=== PATIENT | male | born 1985 | race African-American/Black ===

== ENCOUNTER 2019-09-24 21:15 | Emergency (ER) | payer OTHER, SELFPAY ==
[2019-09-24 21:13] VITALS: BP 144/102; PULSE 67; RESP 12; TEMP 36.6; O2SAT 100
--- NOTE | 2019-09-24 21:32 | ED.GENADULT ---
HPI - General Adult General Chief complaint: Unspecified Stated complaint: lightheaded Time Seen by Provider: 09/24/19 21:24 Source: patient Mode of arrival: ambulatory Limitations: no limitations History of Present Illness HPI narrative: Patient is a 34 year old male who presents to the emergency department via emergency medical services with complaints of a tingling sensation shooting up his left arm. He notes that he was driving to get food when he felt the tingling and he was getting lightheaded. Patient states that he turned around and went back home and sat down. He got another tingling sensation and that is when he decided to call 911. He states that his tingling is better and now only has tingling to his fingertips with little numbness. Patient has never had these symptoms before. He notes that he was not thinking about anything when he was driving and he was not hyperventilating. He states that his heart was pounding. Patient has been coughing all day but he denies feeling sick otherwise. He has a normal appetite. Patient has a history of asthma but has not had a flare up in years. He is a daily smoker and drinks 3 beers a day. He states that he has only gone a day or two without drinking. He does not smoke marijuana or use other drugs. He does not have a primary care physician. 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 He is 6 feet 4 inches tall but is unaware of his wing span. MD complaint: Tingling left arm Location: left (arm) Quality: other (tingling) Pain Consistency: other (better now) Associated symptoms: other (palpitations, lightheadedness, cough) Treatments prior to arrival: none Related Data Allergies Allergy/AdvReac Type Severity Reaction Status Date / Time Penicillins Allergy Unknown Unknown Verified 09/24/19 21:24 Tuna Allergy Unknown HIVES Uncoded 09/26/18 12:51 Review of Systems Review of Systems: All systems reviewed & are unremarkable except as noted in HPI and below Constitutional: Constitutional: Reports no additional constitutional complaints and Reports other (normal appetite) Cardiovascular: Cardiovascular: Reports no additional cardiovascular complaints, Reports chest pain, Reports lightheadedness, Reports radiating jaw, neck or arm pain and Reports palpitations Respiratory: Respiratory: Reports cough Gastrointestinal: Gastrointestinal: Reports abdominal pain Neurologic: Denies confusion, Denies headache(s), Denies focal weakness, Reports numbness (left arm), Reports tingling (left arm) and Denies weakness PMFSH Past Medical History Medical History Asthma Surgical History Surgical History H/O inguinal hernia repair Social History Social History (Updated 09/24/19 @ 21:50 by Yayo Perez) Smoking status: Current every day smoker Alcohol intake: current Substance use: never 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 Gender identity (if verbalized by the patient): Male Exam Const: General: cooperative and healthy appearing Nutritional Appearance: thin and other (tall) Orientation/consciousness: patient oriented x3 (alert) HENMT: Face and sinus: other (nose is cool) Chest: Chest palpation & inspection: normal inspection of the chest Resp: Effort & Inspection: normal respiratory effort Auscultation: clear to auscultation bilaterally and no wheezes Cardio: Rate: regular rate Rhythm: regular rhythm Heart sounds: no murmurs GI: Inspection: normal to inspection GI Palp: No abdominal tenderness Skin: General skin exam: normal color Neuro: General: patient oriented x3 (alert) Extrem: General: other (toes and fingers cool) Course Reevaluation(s) Reevaluation #1: Discussed negative lab results and discharge plans Date: 09/24/19 Time: 22:34 Vital Signs Vital signs: Vital Signs Temperature 97.9 F 09/24/19 21:13 Pulse Rate 67 09/24/19 21:13
--- NOTE | 2019-09-24 21:40 | ECG_ITS ---
Measurements Intervals [place] Rate: 75 P: 70 [place]: 165 QRS: 71 QRSD: 87 T: 47 QT: 357 QTc: 399 Interpretive Statements SINUS RHYTHM BASELINE ARTIFACT- I, II, AVR NORMAL ECG Electronically Signed On 09-25-2019 6:58:18 CDT by Elio Fernandez D.O.
[2019-09-24 21:58] LABS: Basophils Absolute Auto 0.1 K/mm3 (0.0-0.1); Basophils Percent Auto 1.2 % (0.2-1.2); Eosinophils Absolute Auto 0.1 K/mm3 (0-0.3); Eosinophils Percent Auto 2.7 % (0-4.4); Hematocrit 50.4 % (42.0-52.0); Hemoglobin 17.5 g/dL (14.0-18.0); Immature Granulocyte Absolute 0.01 K/mm3 (0.00-0.031); Immature Granulocyte Percent A 0.2 % (0-0.5); Lymphocytes Absolute Auto 1.99 K/mm3 (0.9-3.2); Lymphocytes Percent Auto 41.2 % (18.3-44.2); Mean Corpuscular HGB Conc 34.7 g/dl (32-36); Mean Corpuscular Hemoglobin 35.7 pg (26-34); Mean Corpuscular Volume 102.9 fl (80-100); Mean Platelet Volume 11.3 fl (7.4-10.4); Monocytes Absolute Auto 0.4 K/mm3 (0.1-0.6); Monocytes Percent Auto 7.9 % (2.6-8.5); Neutrophils Absolute Auto 2.3 K/mm3 (1.3-6.7); Neutrophils Percent Auto 46.8 % (45.5-73.1); Platelet Count Result 204 k/mm3 (150-375); Red Cell Distribution Width 11.8 % (11.5-14.5); White Blood Count 4.8 K/mm3 (4.5-10.0)
[2019-09-24 22:18] LABS: Alanine Aminotransferase 32 U/L (4-50); Albumin Level 4.5 g/dL (3.5-5.1); Alkaline Phosphatase 85 U/L (38-126); Aspartate Amino Transferase 45 U/L (17-59); Bilirubin,Total 0.7 mg/dL (0.2-1.3); Blood Urea Nitrogen 9 mg/dL (9-20); Calcium 9.6 mg/dL (8.4-10.2); Carbon Dioxide 32 mmol/L (22-30); Chloride 99 mmol/L (98-107); Estimated CRCL calculation 102 ml/min; Estimated Glomerular Filt Rate > 60; Glucose 86 mg/dL (75-110); Sodium 137 mmol/L (137-145)
[2019-09-24 22:19] VITALS: BP 127/95; PULSE 71; RESP 12; O2SAT 100
[2019-09-24 22:30] LABS: Troponin I < 0.012 ng/mL (0.000-0.034)
[2019-09-24 22:35] LABS: Ethanol < 10 mg/dL (<10)
[2019-09-24 23:22] VITALS: BP 127/90; PULSE 83; RESP 13; O2SAT 98
== END 2019-09-24 23:20 | disposition home or self-care (01) ==
PROVIDERS: Emergency Provider Emergency Medicine
DX: R20.2 Paresthesia of skin (principal); R03.0 Elevated blood-pressure reading, without diagnosis of hypertension; J45.909 Unspecified asthma, uncomplicated; F17.200 Nicotine dependence, unspecified, uncomplicated
CPT/HCPCS: 36415; 80053; 80307; 84484; 85025; 93005; 99284

== ENCOUNTER 2020-06-19 21:51 | Emergency (ER) | payer OTHER, SELFPAY ==
--- NOTE | ~2020-06-19 | XR_ITS ---
EXAMINATION: XR chest 2V DATE: 06/19/2020 22:47 INDICATION: Medial chest tightness, chest pain and shortness of breath. TECHNIQUE: PA and lateral views of the chest were obtained. COMPARISON: Chest radiograph dated 10/16/2018 FINDINGS: Mild biapical pleural-parenchymal scarring. No other focal airspace opacities, pulmonary edema, pleur al effusion or pneumothorax. The cardiomediastinal silhouette is normal. Slight mid thoracic dextrocu rvature. IMPRESSION: 1. No acute cardiopulmonary disease. Reviewed, dictated and finalized at location A. MATIC RIVETER
[2020-06-19 21:53] VITALS: BP 145/94; PULSE 90; RESP 16; TEMP 36.4
[2020-06-19 22:36] LABS: Basophils Absolute Auto 0.1 K/mm3 (0.0-0.1); Basophils Percent Auto 1.1 % (0.2-1.2); Eosinophils Absolute Auto 0.2 K/mm3 (0-0.3); Eosinophils Percent Auto 2.5 % (0-4.4); Hematocrit 45.2 % (42.0-52.0); Hemoglobin 15.9 g/dL (14.0-18.0); Immature Granulocyte Absolute 0.01 K/mm3 (0.00-0.031); Immature Granulocyte Percent A 0.2 % (0-0.5); Lymphocytes Absolute Auto 2.68 K/mm3 (0.9-3.2); Lymphocytes Percent Auto 41.6 % (18.3-44.2); Mean Corpuscular HGB Conc 35.2 g/dl (32-36); Mean Corpuscular Hemoglobin 35.3 pg (26-34); Mean Corpuscular Volume 100.4 fl (80-100); Mean Platelet Volume 11.2 fl (7.4-10.4); Monocytes Absolute Auto 0.4 K/mm3 (0.1-0.6); Monocytes Percent Auto 6.5 % (2.6-8.5); Neutrophils Absolute Auto 3.1 K/mm3 (1.3-6.7); Neutrophils Percent Auto 48.1 % (45.5-73.1); Platelet Count Result 198 k/mm3 (150-375); Red Cell Distribution Width 11.6 % (11.5-14.5); White Blood Count 6.5 K/mm3 (4.5-10.0)
--- NOTE | 2020-06-19 22:45 | ED.GENADULT ---
HPI - General Adult General Chief complaint: Extremity Injury, Upper Stated complaint: LEFT SHOULDER PAIN Time Seen by Provider: 06/19/20 22:08 History of Present Illness HPI narrative: Patient is a 35-year-old male who presents ER with left shoulder and chest pain for the last 2 days. Began several days ago while at work. Worse with twisting and moving. Mild discomfort with exertion. Improvement with ibuprofen. Patient reports he is also been having some mild cough but no increasing shortness of breath. He has been swabbed twice this week for Covid and was negative both times since he works at a [employer]. Related Data Home Medications Medication Instructions Recorded Confirmed aspirin 06/19/20 atorvastatin 06/19/20 montelukast mg 06/19/20 trazodone 06/19/20 Allergies Allergy/AdvReac Type Severity Reaction Status Date / Time Penicillins Allergy Unknown Unknown Verified 06/19/20 22:00 Tuna Allergy Unknown HIVES Uncoded 06/19/20 22:00 Review of Systems Review of Systems: All systems reviewed & are unremarkable except as noted in HPI and below Constitutional: Constitutional: Denies chills, Denies fever(s) and Denies weakness ENT: Reports nasal congestion and Denies sore throat Cardiovascular: Cardiovascular: Reports chest pain, Denies rapid heart rate and Denies radiating jaw, neck or arm pain Respiratory: Respiratory: Reports cough, Denies dyspnea and Denies wheezing Gastrointestinal: Gastrointestinal: Denies abdominal pain, Denies nausea and Denies vomiting Musculoskeletal: Musculoskeletal: Denies back pain and Reports muscle cramps PMFSH Past Medical History Medical History (Updated 06/20/20 @ 00:27 by Adrian Boateng MD) Asthma Surgical History Surgical History H/O inguinal hernia repair Social History Social History (Updated 09/24/19 @ 21:50 by Yayo Perez) Smoking status: Current every day smoker Alcohol intake: current Substance use: never 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 HEAD: Normocephalic, atraumatic. CHEST: Coarse lung sounds throughout. No respiratory distress. HEART: Regular rate and rhythm. Normal peripheral pulses. ABDOMEN: Soft, nontender, nondistended. EXTREMITIES: Normal range of motion. No edema. SKIN: Warm, dry, no rash. NEURO: Alert and oriented x3. PSYCH: Normal mood and affect. Course Course Emergency Course: Lungs clear after nebulizer treatment. Discharge with steroids. Has albuterol at home. Vital Signs Vital signs: Vital Signs Temperature 97.5 F L 06/19/20 21:53 Pulse Rate 90 06/19/20 21:53 Respiratory Rate 16 06/19/20 21:53 Blood Pressure 145/94 H 06/19/20 21:53 Temperature 97.5 F L 06/19/20 21:53 Pulse Rate 90 06/19/20 22:59 Respiratory Rate 16 06/19/20 22:59 Blood Pressure 145/94 H 06/19/20 21:53 Medical Decision Making Vital Signs Vital Signs: Vital Signs Temperature 97.5 F L 06/19/20 21:53 Pulse Rate 90 06/19/20 21:53 Respiratory Rate 16 06/19/20 21:53 Blood Pressure 145/94 H 06/19/20 21:53 Temperature 97.5 F L 06/19/20 21:53 Pulse Rate 90 06/19/20 22:59 Respiratory Rate 16 06/19/20 22:59 Blood Pressure 145/94 H 06/19/20 21:53 Lab Data Result diagrams: 06/19/20 22:30 06/19/20 22:30 Labs: Lab Results 06/19/20 06/19/20 Range/Units 22:30 22:30 WBC 6.5 (4.5-10.0) K/mm3 RBC 4.50 L (4.6-6.20) M/mm3 Hgb 15.9 (14.0-18.0) g/dL Hct 45.2 (42.0-52.0) % MCV 100.4 H (80-100) fl MCH 35.3 H (26-34) pg MCHC 35.2 (32-36) g/dl RDW 11.6 (11.5-14.5) % Plt Count 198 (150-375) k/mm3 MPV 11.2 H (7.4-10.4) fl Immature Gran % (Auto) 0.2 (0-0.5) % Neut % (Auto) 48.1 (45.5-73.1) %
[2020-06-19 22:52] VITALS: PULSE 75; RESP 16
[2020-06-19 22:52] LABS: Anion Gap 7 mmol/L (8-16); Blood Urea Nitrogen 11 mg/dL (9-20); Calcium 9.4 mg/dL (8.4-10.2); Carbon Dioxide 29 mmol/L (22-30); Chloride 101 mmol/L (98-107); Estimated CRCL calculation 121 ml/min; Estimated Glomerular Filt Rate > 60; Glucose 110 mg/dL (75-110); Potassium 3.5 mmol/L (3.4-5.0); Sodium 137 mmol/L (137-145)
[2020-06-19] MEDS: ALBUTEROL SULFATE NEB 2.5 MG/0.5 ML INH 5 MG INHALATION (22:52)
[2020-06-19] MEDS: IPRATROPIUM BR 0.02% INH SOLN 0.5 MG/2.5 ML VIAL INHALATION (22:52)
[2020-06-19 22:59] VITALS: PULSE 90; RESP 16
[2020-06-19 23:04] LABS: Troponin I < 0.012 ng/mL (0.000-0.034)
[2020-06-20] MEDS: predniSONE 20 MG TABLET 60 MG PO (00:56)
[2020-06-20 00:57] VITALS: BP 129/89; PULSE 78; RESP 18; O2SAT 98
== END 2020-06-20 00:58 | disposition home or self-care (01) ==
PROVIDERS: Emergency Provider Emergency Medicine
DX: R07.89 Other chest pain (principal); J45.901 Unspecified asthma with (acute) exacerbation; F17.200 Nicotine dependence, unspecified, uncomplicated
CPT/HCPCS: 36415; 71046; 80048; 84484; 85025; 94640; 99284; J7512

== ENCOUNTER 2020-06-25 23:22 | Emergency (ER) | payer OTHER, SELFPAY ==
--- NOTE | ~2020-06-25 | XR_ITS ---
EXAMINATION: XR chest 2V 06/26/2020 00:40 INDICATION: Shortness of breath. History of asthma. PROCEDURE: PA and lateral views of the chest COMPARISON: Comparison to multiple prior studies sequentially, with oldest reviewed study dated 09/03. FINDINGS: The lungs are clear. The cardiomediastinal silhouette is within normal limits. There are no pleural effusions. There is no pneumothorax suspected. IMPRESSION: 1: NO ACUTE CARDIOPULMONARY DISEASE. Reviewed, dictated and finalized at location A. OND SAW OPERATOR
[2020-06-25 23:32] VITALS: BP 152/90; PULSE 77; RESP 12; TEMP 36.9; O2SAT 100
[2020-06-26] VITALS (31 sets, daily range): BP systolic 129–152; BP diastolic 86–105; PULSE 61–84; RESP 12–20; O2SAT 95–100
[2020-06-26] MEDS: ALBUTEROL SULFATE NEB 2.5 MG/0.5 ML INH 5 MG INHALATION (00:19)
[2020-06-26] MEDS: IPRATROPIUM BR 0.02% INH SOLN 0.5 MG/2.5 ML VIAL INHALATION (00:19)
--- NOTE | 2020-06-26 00:45 | PC.NURSE ---
pt currently rates pain 0/10, would like to hold off on morphine dose at this time. ERP Dr. Boateng notified of pt request and ok with waiting at this time.
[2020-06-26 00:57] LABS: Basophils Percent Auto 0.1 % (0.2-1.2); Hematocrit 44.5 % (42.0-52.0); Hemoglobin 15.6 g/dL (14.0-18.0); Immature Granulocyte Absolute 0.06 K/mm3 (0.00-0.031); Immature Granulocyte Percent A 0.6 % (0-0.5); Lymphocytes Percent Auto 11.6 % (18.3-44.2); Mean Corpuscular HGB Conc 35.1 g/dl (32-36); Mean Corpuscular Hemoglobin 36.1 pg (26-34); Mean Platelet Volume 12.5 fl (7.4-10.4); Monocytes Absolute Auto 0.2 K/mm3 (0.1-0.6); Neutrophils Absolute Auto 8.1 K/mm3 (1.3-6.7); Neutrophils Percent Auto 85.7 % (45.5-73.1); Platelet Count Result 230 k/mm3 (150-375); Red Blood Count 4.32 M/mm3 (4.6-6.20); Red Cell Distribution Width 11.9 % (11.5-14.5); White Blood Count 9.5 K/mm3 (4.5-10.0)
[2020-06-26 01:07] LABS: Prothrombin Time 13.4 Seconds (11.1-14.7)
[2020-06-26 01:08] LABS: Partial Thromboplastin Time 26.2 SECONDS (22.3-36.8)
[2020-06-26 01:12] LABS: Anion Gap 10 mmol/L (8-16); Blood Urea Nitrogen 15 mg/dL (9-20); Calcium 9.5 mg/dL (8.4-10.2); Carbon Dioxide 32 mmol/L (22-30); Chloride 97 mmol/L (98-107); Estimated CRCL calculation 120 ml/min; Estimated Glomerular Filt Rate > 60; Glucose 146 mg/dL (75-110); Potassium 3.5 mmol/L (3.4-5.0); Sodium 139 mmol/L (137-145)
[2020-06-26 01:24] LABS: Troponin I < 0.012 ng/mL (0.000-0.034)
--- NOTE | 2020-06-26 01:39 | ED.GENADULT ---
HPI - General Adult General Chief complaint: Asthma Stated complaint: abd pain Time Seen by Provider: 06/25/20 23:29 History of Present Illness HPI narrative: Patient is a 35-year-old male who presents to the ER with complaints of asthma exacerbation. Has tightness across his chest. Reports he is also had some intermittent cramping in his left arm today. Had been seen recently for similar and was given a prednisone burst which she reports compliance with. Reports occasional cough. No fevers or chills or sweats. No loss of taste or smell. Due to recurrence of chest discomfort and shortness of breath felt he should be reevaluated. Related Data Home Medications Medication Instructions Recorded Confirmed aspirin 06/19/20 atorvastatin 06/19/20 montelukast mg 06/19/20 trazodone 06/19/20 Allergies Allergy/AdvReac Type Severity Reaction Status Date / Time Penicillins Allergy Unknown Unknown Verified 06/19/20 22:00 Tuna Allergy Unknown HIVES Uncoded 06/19/20 22:00 Review of Systems Review of Systems: All systems reviewed & are unremarkable except as noted in HPI and below Constitutional: Constitutional: Denies chills, Denies fever(s) and Denies weakness ENT: Denies nasal congestion Cardiovascular: Cardiovascular: Reports chest pain, Denies rapid heart rate and Denies radiating jaw, neck or arm pain Respiratory: Respiratory: Denies cough, Reports dyspnea and Reports wheezing Gastrointestinal: Gastrointestinal: Denies abdominal pain, Denies nausea and Denies vomiting PMFSH Past Medical History Medical History (Updated 06/26/20 @ 05:12 by Adrian Boateng MD) Asthma Surgical History Surgical History H/O inguinal hernia repair Social History Social History (Updated 09/24/19 @ 21:50 by Yayo Perez) Smoking status: Current every day smoker Alcohol intake: current Substance use: never 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 HEAD: Normocephalic, atraumatic. ENT: Mucous membranes moist. CHEST: Rhonchi right lower lung galindo, mild wheezing left lower lung galindo. No respiratory distress. HEART: Regular rate and rhythm. Normal peripheral pulses. ABDOMEN: Soft, nontender, nondistended,. EXTREMITIES: Normal range of motion. No edema. SKIN: Warm, dry, no rash. NEURO: Alert and oriented x3. Course Course Emergency Course: Patient denied any pain in his chest so he opted not to receive morphine. After nebulizer treatment patient's lung sounds have cleared. We will perform a second troponin out of caution. Vital Signs Vital signs: Vital Signs Temperature 98.4 F 06/25/20 23:32 Pulse Rate 77 06/25/20 23:32 Respiratory Rate 12 06/25/20 23:32 Blood Pressure 152/90 H 06/25/20 23:32 Pulse Oximetry 100 06/25/20 23:32 Temperature 98.4 F 06/25/20 23:32 Pulse Rate 73 06/26/20 04:45 Respiratory Rate 16 06/26/20 04:45 Blood Pressure 135/92 H 06/26/20 04:30 Pulse Oximetry 100 06/26/20 04:45 Medical Decision Making Vital Signs Vital Signs: Vital Signs Temperature 98.4 F 06/25/20 23:32 Pulse Rate 77 06/25/20 23:32 Respiratory Rate 12 06/25/20 23:32 Blood Pressure 152/90 H 06/25/20 23:32 Pulse Oximetry 100 06/25/20 23:32 Temperature 98.4 F 06/25/20 23:32 Pulse Rate 73 06/26/20 04:45 Respiratory Rate 16 06/26/20 04:45 Blood Pressure 135/92 H 06/26/20 04:30 Pulse Oximetry 100 06/26/20 04:45 Lab Data Result diagrams: 06/26/20 00:51 06/26/20 00:51 Labs: Lab Results 06/26/20 06/26/20 06/26/20 Range/Units 00:51 00:51 00:51 WBC 9.5 (4.5-10.0) K/mm3 RBC 4.32 L (4.6-6.20) M/mm3 Hgb 15.6 (14.0-18.0) g/dL Hct 44.5 (42.0-52.0) % MCV 103.0 H (80-100) fl
[2020-06-26 04:48] LABS: Troponin I < 0.012 ng/mL (0.000-0.034)
--- NOTE | 2020-06-26 05:18 | ECG_ITS ---
Measurements Intervals [place] Rate: 63 P: 41 [place]: 163 QRS: 65 QRSD: 96 T: 35 QT: 382 QTc: 392 Interpretive Statements SINUS RHYTHM NORMAL ECG Electronically Signed On 06-26-2020 7:20:03 NURSE HEAD by Elio Fernandez D.O.
== END 2020-06-26 05:43 | disposition home or self-care (01) ==
PROVIDERS: Emergency Provider Emergency Medicine; PCP Internal Medicine
DX: J45.909 Unspecified asthma, uncomplicated (principal); R07.89 Other chest pain; F17.200 Nicotine dependence, unspecified, uncomplicated
CPT/HCPCS: 36415; 71046; 80048; 84484; 85025; 85610; 85730; 93005; 94640; 99284

== ENCOUNTER 2020-12-05 12:28 | Emergency (ER) | payer OTHER, SELFPAY ==
[2020-12-05 12:42] VITALS: BP 134/79; PULSE 82; RESP 16; TEMP 36.4; O2SAT 98
--- NOTE | 2020-12-05 12:43 | ED.MALEGU ---
HPI - Male Genitourinary General Chief complaint: Urogenital-Male Stated complaint: UTI Time Seen by Provider: 12/05/20 12:55 Source: patient and RN notes reviewed Mode of arrival: ambulatory Limitations: no limitations History of Present Illness HPI Narrative: 35-year-old male presents concern for dysuria, feeling of something blocking his urine stream , urine urgency. He denies fever, abdominal pain, testicular pain, swelling, redness, penile discharge. He reports he has had unprotected sex with the last 2 months, however is not aware of any known exposure to any STD. MD Complaint: dysuria Related Data Home Medications Medication Instructions Recorded Confirmed aspirin 06/19/20 atorvastatin 06/19/20 montelukast mg 06/19/20 trazodone 06/19/20 Proair Inhaler 12/05/20 Allergies Allergy/AdvReac Type Severity Reaction Status Date / Time Penicillins Allergy Unknown Unknown Verified 06/19/20 22:00 Tuna Allergy Unknown HIVES Uncoded 06/19/20 22:00 Review of Systems Review of Systems: Narrative: CONSTITUTIONAL: Denies malaise, chills, sweats, or fever. CARDIOVASCULAR: Denies chest pain, palpitations, or edema. RESPIRATORY: Denies cough or dyspnea. GASTROINTESTINAL: Denies abdominal pain, nausea, vomiting, diarrhea, bloody, or mucous stools. GENITOURINARY: Reports dysuria, urgency, hesitancy urine flow. Denies flank pain, penile discharge, or hematuria. SKIN: Denies lesions, rash or itching. MUSCULOSKELETAL: Denies back pain or myalgia. 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 There is no relevant family history pertinent to the presenting complaint Exam Narrative: Exam Narrative: GENERAL: Well-appearing, well-nourished, and in no acute distress. HEAD: Normocephalic. EYES: PERRLA, conjunctivae clear. NECK: Supple. No lymphadenopathy CHEST: Clear to auscultation. No respiratory distress. HEART: Regular rate and rhythm. SKIN: Warm, dry, no rash. NEURO: Alert and oriented x3. PSYCH: Normal mood and affect Course Course Emergency Course: Discussed with patient differential diagnosis, STD testing. Patient feels that he is a low likelihood of STD, but not impossible. Will treat patient for possible prostatitis, will send urine culture and gonorrhea, chlamydia, trichomonas testing. Patient understands that if any STD is positive he may need to return for treatment. Patient is aware of diagnosis, understands and agrees to treatment plan. Anticipatory guidance given. Patient agrees to follow-up as directed and is aware of reasons to seek care at the emergency department. Portions of this record may have been created with voice recognition software Vital Signs Vital signs: Vital Signs Temperature 97.6 F 12/05/20 12:42 Pulse Rate 82 12/05/20 12:42 Respiratory Rate 16 12/05/20 12:42 Blood Pressure 134/79 12/05/20 12:42 Pulse Oximetry 98 12/05/20 12:42 Temperature 97.6 F 12/05/20 12:42 Pulse Rate 82 12/05/20 12:42 Respiratory Rate 16 12/05/20 12:42 Blood Pressure 134/79 12/05/20 12:42 Pulse Oximetry 98 12/05/20 12:42 Reviewed. MDM - Male Genitourinary MDM Narrative Medical decision making narrative: Exam findings and UA show no acute concerns or changes; patient is non-toxic appearing and is in no distress. Patient is appropriate for outpatient treat
--- NOTE | 2020-12-05 12:45 | PC.NURSE ---
in br to obtain ua spec.
== END 2020-12-05 13:16 | disposition home or self-care (01) ==
PROVIDERS: Emergency Provider Nurse Practitioner; PCP Internal Medicine
DX: N41.0 Acute prostatitis (principal); J45.909 Unspecified asthma, uncomplicated
CPT/HCPCS: 81003; 87086; 87491; 87591; 87661; 99213; G0463

== ENCOUNTER 2021-04-16 14:13 | Emergency (ER) | payer OTHER, SELFPAY ==
[2021-04-16] VITALS (27 sets, daily range): BP systolic 118–143; BP diastolic 82–97; PULSE 60–88; RESP 12–19; TEMP 36.2–36.6; O2SAT 96–100
--- NOTE | ~2021-04-16 | XR_ITS ---
EXAMINATION: XR chest 2V DATE: 04/16/2021 15:09 INDICATION: Dizziness. Right arm numbness. Asthma. TECHNIQUE: Frontal and lateral views of the chest were obtained. COMPARISON: Chest 2 views 06/26/20, CT abdomen and pelvis 05/20/2019 FINDINGS: There is mild scarring at the lung apices. No pleural effusion or pneumothorax. The heart s ize is normal. IMPRESSION: 1. Stable mild scarring at the lung apices. Reviewed, dictated and finalized at location A.
--- NOTE | 2021-04-16 14:20 | ECG_ITS ---
Measurements Intervals [place] Rate: 74 P: 68 [place]: 150 QRS: 68 QRSD: 98 T: 47 QT: 353 QTc: 392 Interpretive Statements SINUS RHYTHM BORDERLINE T WAVE ABNORMALITY- ANTERIOR LEADS BASELINE WANDER- II, III BORDERLINE ECG Electronically Signed On 04-16-2021 16:46:41 CDT by Elio Fernandez D.O.
[2021-04-16 14:55] LABS: Basophils Absolute Auto 0.1 K/mm3 (0.0-0.1); Eosinophils Absolute Auto 0.2 K/mm3 (0-0.3); Eosinophils Percent Auto 4.4 % (0-4.4); Hematocrit 46.2 % (42.0-52.0); Hemoglobin 16.3 g/dL (14.0-18.0); Immature Granulocyte Absolute 0.01 K/mm3 (0.00-0.031); Immature Granulocyte Percent A 0.2 % (0-0.5); Lymphocytes Absolute Auto 1.73 K/mm3 (0.9-3.2); Lymphocytes Percent Auto 34.6 % (18.3-44.2); Mean Corpuscular HGB Conc 35.3 g/dl (32-36); Mean Corpuscular Hemoglobin 35.7 pg (26-34); Mean Corpuscular Volume 101.3 fl (80-100); Mean Platelet Volume 11.7 fl (7.4-10.4); Monocytes Absolute Auto 0.4 K/mm3 (0.1-0.6); Monocytes Percent Auto 7.8 % (2.6-8.5); Neutrophils Absolute Auto 2.6 K/mm3 (1.3-6.7); Platelet Count Result 198 k/mm3 (150-375); Red Blood Count 4.56 M/mm3 (4.6-6.20); Red Cell Distribution Width 12.1 % (11.5-14.5)
[2021-04-16 15:06] LABS: INR 0.9; Partial Thromboplastin Time 25.2 SECONDS (22.3-36.8); Prothrombin Time 11.7 Seconds (11.1-14.7)
[2021-04-16 15:20] LABS: Anion Gap 8 mmol/L (8-16); Blood Urea Nitrogen 12 mg/dL (9-20); Calcium 9.7 mg/dL (8.4-10.2); Carbon Dioxide 31 mmol/L (22-30); Chloride 99 mmol/L (98-107); Estimated CRCL calculation 98 ml/min; Estimated Glomerular Filt Rate > 60; Glucose 122 mg/dL (65-110); Potassium 4.3 mmol/L (3.4-5.0); Sodium 138 mmol/L (137-145)
[2021-04-16 15:32] LABS: Troponin I < 0.012 ng/mL (0.000-0.034)
[2021-04-16 18:25] LABS: Troponin I < 0.012 ng/mL (0.000-0.034)
[2021-04-16] MEDS: SODIUM CHLORIDE 0.9% IV 1,000 ML 999 ML IV CONT (19:48)
--- NOTE | 2021-04-16 21:42 | ED.GENADULT ---
HPI - General Adult General Chief complaint: Dizziness Stated complaint: lightheaded Time Seen by Provider: 04/16/21 17:13 History of Present Illness HPI narrative: Patient is a 36-year-old male who presents ER with concerns for lightheadedness. Reports he was leaving work and felt like he was going to pass out 2 times. No racing of the heart. Reports his head would johnny down and he suddenly would wake back up. No racing the heart. No chest pain or chest pressure. Reports he did have tightness in his right arm. No recurrence of symptoms. Has not had this previously. Related Data Home Medications Medication Instructions Recorded Confirmed atorvastatin 06/19/20 montelukast mg 06/19/20 Proair Inhaler 12/05/20 Allergies Allergy/AdvReac Type Severity Reaction Status Date / Time Penicillins Allergy Unknown Unknown Verified 04/16/21 16:43 Tuna Allergy Unknown HIVES Uncoded 04/16/21 16:43 Review of Systems Review of Systems: All systems reviewed & are unremarkable except as noted in HPI and below Constitutional: Constitutional: Denies chills, Denies fever(s) and Denies weakness ENT: Denies nasal congestion and Denies sore throat Cardiovascular: Cardiovascular: Denies chest pain, Denies rapid heart rate and Reports radiating jaw, neck or arm pain Respiratory: Respiratory: Denies cough and Denies dyspnea Gastrointestinal: Gastrointestinal: Denies nausea and Denies vomiting Neurologic: Reports syncope (Near), Denies headache(s), Denies focal weakness and Denies numbness PMFSH Past Medical History Medical History (Updated 04/17/21 @ 00:00 by Otilia Cardenas) Asthma Surgical History Surgical History H/O inguinal hernia repair Social History Social History (Updated 09/24/19 @ 21:50 by Yayo Perez) Smoking status: Current every day smoker Alcohol intake: current Alcohol use details: drinks 3 beers a day Substance use: never 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 HEAD: Normocephalic, atraumatic. EYES: PERRL and EOMI. CHEST: Clear to auscultation. No respiratory distress. HEART: Regular rate and rhythm. Normal peripheral pulses. ABDOMEN: Soft, nontender, nondistended. EXTREMITIES: Normal range of motion. No edema. SKIN: Warm, dry, no rash. NEURO: Alert and oriented x3. PSYCH: Normal mood and affect. Course Course Emergency Course: Unremarkable evaluation. Troponin negative x2. Discharge home. Vital Signs Vital signs: Vital Signs Temperature 97.1 F L 04/16/21 14:16 Pulse Rate 85 04/16/21 14:16 Respiratory Rate 16 04/16/21 14:16 Blood Pressure 143/91 H 04/16/21 14:16 Pulse Oximetry 100 04/16/21 14:16 Temperature 97.8 F 04/16/21 21:55 Pulse Rate 88 04/16/21 21:55 Respiratory Rate 18 04/16/21 21:55 Blood Pressure 134/88 04/16/21 21:55 Pulse Oximetry 100 04/16/21 21:55 Medical Decision Making Vital Signs Vital Signs: Vital Signs Temperature 97.1 F L 04/16/21 14:16 Pulse Rate 85 04/16/21 14:16 Respiratory Rate 16 04/16/21 14:16 Blood Pressure 143/91 H 04/16/21 14:16 Pulse Oximetry 100 04/16/21 14:16 Temperature 97.8 F 04/16/21 21:55 Pulse Rate 88 04/16/21 21:55 Respiratory Rate 18 04/16/21 21:55 Blood Pressure 134/88 04/16/21 21:55 Pulse Oximetry 100 04/16/21 21:55 Lab Data Result diagrams: 04/16/21 14:33 04/16/21 14:33 Labs: Lab Results 04/16/21 04/16/21 04/16/21 Range/Units 14:33 14:33 14:33 WBC 5.0 (4.5-10.0) K/mm3 RBC 4.56 L (4.6-6.20) M/mm3 Hgb 16.3 (14.0-18.0) g/dL Hct 46.2 (42.0-52.0) % MCV 101.3 H (80-100) fl MCH 35.7 H (26-34) pg MCHC 35.3 (32-36) g/dl RDW 12.1 (11.5-14.5) % Plt Count 198 (150-375) k/mm
== END 2021-04-16 21:58 | disposition home or self-care (01) ==
PROVIDERS: Emergency Medicine; Emergency Provider Emergency Medicine; PCP Internal Medicine
DX: R42 Dizziness and giddiness (principal); J45.909 Unspecified asthma, uncomplicated; F17.200 Nicotine dependence, unspecified, uncomplicated
CPT/HCPCS: 36415; 71046; 80048; 84484; 85025; 85610; 85730; 93005; 96360; 99284; J7030

== ENCOUNTER 2022-12-07 14:11 | Emergency (ER) | payer BC, SELFPAY ==
--- NOTE | 2022-12-07 14:21 | ED.GENADULT ---
HPI - General Adult General Chief complaint: Upper Respiratory Infection Stated complaint: Weakness Time Seen by Provider: 12/07/22 14:46 Source: patient and RN notes reviewed Mode of arrival: ambulatory Limitations: no limitations History of Present Illness HPI narrative: 37-year-old male presents with concern for 5 day history of cough, nasal congestion, sinus drainage, sore throat, sneezing. He reports some pain on his left side when he coughs, laughs. He denies shortness of breath. He reports low-grade temperature. Reports he has been taking some Flonase which helps with his nasal congestion. complaint: URI Related Data Home Medications Medication Instructions Recorded Confirmed albuterol sulfate 90 mcg/actuation inhalation 12/07/22 12/07/22 aerosol inhaler atorvastatin 10 mg tablet mg 12/07/22 montelukast 10 mg tablet mg 12/07/22 Allergies Allergy/AdvReac Type Severity Reaction Status Date / Time Penicillins Allergy Unknown Unknown Verified 12/07/22 14:27 Tuna Allergy Unknown HIVES Uncoded 12/07/22 14:27 Review of Systems Review of Systems: CONSTITUTIONAL: Reports malaise, low-grade fever. Denies chills, sweats EYES: Denies visual changes, redness, or discharge. ENT: Reports rhinorrhea, congestion, sore throat. Denies sinus pain, otalgia CARDIOVASCULAR: Denies chest pain, palpitations, or edema. RESPIRATORY: Reports cough. Denies dyspnea. GASTROINTESTINAL: Denies abdominal pain, nausea, vomiting, diarrhea SKIN: Denies rash or itching. MUSCULOSKELETAL: Denies myalgia. Reports left-sided pain with coughing and laughing NEUROLOGIC: Denies headache. All systems reviewed & are unremarkable except as noted in HPI and below PMFSH Past Medical History Medical History (Updated 12/07/22 @ 15:18 by Becky Bowen NP) Asthma Surgical History Surgical History H/O inguinal hernia repair Social History Social History (Updated 09/24/19 @ 21:50 by Yayo Perez) Smoking status: Current every day smoker Alcohol intake: current Alcohol use details: drinks 3 beers a day Substance use: never Occupation/Education: occupation Additional occupation/education comments: [employer] Gender identity (if verbalized by the patient): Male Comments At time of signature, agree with nursing past medical, surgical, social and family history. There is no relevant family history pertinent to the presenting complaint Exam Narrative: GENERAL: Nontoxic-appearing and in no acute distress. HEAD: Normocephalic EYES: PERRLA, conjunctivae clear ENT: Nares clear, turbinates edematous and erythematous, clear discharge. Mucous membranes moist. TM pearly kyle with dull light reflex bilaterally; no tragal tenderness. Oropharynx not erythematous without lesions. Tonsils not enlarged and without exudate, no drooling, no hoarseness, no trismus, uvula midline. NECK: Supple. No lymphadenopathy CHEST: Clear to auscultation, breath sounds equal. No wheezing, rhonchi, rales, or stridor. No respiratory distress, speaks in full sentences. No chest wall tenderness or rib tenderness with palpation HEART: Regular rate and rhythm. No murmur heard. SKIN: Warm, dry, no rash. NEURO: Alert and oriented x3. PSYCH: Normal mood and affect Course Course Emergency Course: Patient is aware of diagnosis, understands and agrees to treatment plan. Anticipatory guidance given. Patient agrees to follow-up as directed and is aware of reasons to seek care at the emergency department. Portions of this record may have been created with voice recognition software Level of Care: Express Care Visit Vital Signs Vital signs: Reviewed. Critical Care Time Critical Care Time Critical Care Time: No Discharge Plan Discharge Clinical Impression: Acute viral syndrome Patient Disposition: Home, Self-Care Condition: Stable Instructions: Viral Syndrome (ED) Additional Instructi
[2022-12-07 14:24] VITALS: BP 134/99; PULSE 71; RESP 16; TEMP 36.8; O2SAT 99
[2022-12-07 14:28] VITALS: BP 134/99; PULSE 71; RESP 16; TEMP 36.8; O2SAT 99
== END 2022-12-07 15:27 | disposition home or self-care (01) ==
PROVIDERS: Emergency Provider Nurse Practitioner; PCP Internal Medicine
DX: B34.9 Viral infection, unspecified (principal); Z20.822 Contact with and (suspected) exposure to COVID-19; J45.909 Unspecified asthma, uncomplicated; F17.200 Nicotine dependence, unspecified, uncomplicated
CPT/HCPCS: 87081; 87426; 87804; 87880; 99213; C9803; G0463

== ENCOUNTER 2024-03-29 13:15 | Emergency (ER) | payer BC, SELFPAY ==
--- NOTE | ~2024-03-29 | XR_ITS ---
XR chest 2V Ordering provider: Becky Ramirez APRN History: 39 years Male with . cough/ fevers x 6-7 days hx asthma . Comparison: April 16, 2021 FINDINGS: MEDIASTINUM: The cardiac silhouette is not enlarged. LUNGS: No infiltrates, effusions or pneumothorax. OTHER: No free air under the diaphragm. IMPRESSION: No acute cardiopulmonary pathology. Reviewed, dictated and finalized at location A.
--- NOTE | 2024-03-29 13:33 | ED.URI ---
HPI - URI/Sore Throat General Chief Complaint: Upper Respiratory Infection Stated Complaint: cough,fever,sweating,muscle weakness Time Seen by Provider: 03/29/24 13:33 Source: patient, RN notes reviewed and old records reviewed Mode of arrival: ambulatory Limitations: no limitations History of Present Illness HPI Narrative: 39-year-old male presents to the [facility] with complaints cough, intermittent fevers, fatigue. Reports he has been exposed to COVID Has taken Tylenol Severe cold. Used his inhaler this morning. History of asthma Reports multiple known negative COVID tests over the last 4 days Onset (ago): day(s) (4-5) Related Data Home Medications Medication Instructions Recorded Confirmed albuterol sulfate 90 mcg/actuation See Rx Instructions .Route .COMPLEX 12/07/22 03/29/24 aerosol inhaler atorvastatin 10 mg tablet 10 mg PO DAILY 12/07/22 03/29/24 fluticasone 250 mcg-salmeterol 50 See Rx Instructions .Route .COMPLEX 03/29/24 03/29/24 mcg/dose blistr powdr for inhalation ([facility] Inhub) Allergies Allergy/AdvReac Type Severity Reaction Status Date / Time Penicillins Allergy Unknown Unknown Verified 03/29/24 13:20 Tuna Allergy Unknown HIVES Uncoded 03/29/24 13:20 Review of Systems Review of Systems: All systems reviewed & are unremarkable except as noted in HPI and below Constitutional: Constitutional: Reports no additional constitutional complaints Eyes: Eyes: Reports no additional eye complaints ENT: Reports as per HPI Cardiovascular: Cardiovascular: Reports no additional cardiovascular complaints, Denies chest pain and Denies dyspnea Respiratory: Respiratory: Reports as per HPI, Denies chest congestion, Reports cough and Denies dyspnea Gastrointestinal: Gastrointestinal: Reports no additional gastrointestinal complaints, Denies abdominal pain, Denies nausea and Denies vomiting Musculoskeletal: Musculoskeletal: Reports no additional musculoskeletal complaints Integumentary/Breasts: Skin/Breast: Reports system reviewed and no additional complaints, except as docu Neurologic: Reports system reviewed and no additional complaints, except as documented Psychiatric: Psychiatric: Reports no additional psychiatric complaints Allergic/Immunologic: Allergic/Immunologic: Reports no additional allergic/immunologic complaints PMFSH Past Medical History Medical History Asthma Surgical History Surgical History H/O inguinal hernia repair Social History Social History Smoking status: Current every day smoker Alcohol intake: current Alcohol use details: drinks 3 beers a day Substance use: never Occupation/Education: occupation Additional occupation/education comments: [employer] 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 There is no relevant family history pertinent to the patient complaint. Exam Const: General: cooperative, healthy appearing, comfortable, no acute distress, well developed, alert and well nourished Nutritional Appearance: well nourished Orientation/consciousness: patient oriented x3 Limitations: no limitations HENMT: Head: normal to inspection Ears: hearing grossly normal bilaterally, external ears normal, TM's normal bilaterally, EAC's normal, mastoids normal and no periauricular adenopathy Face/Nose/Sinus: Normal external nose present, normal facial exam and face symmetric Face and sinus: normal facial exam and face symmetric Mouth: Yes Normal oral and palatal mucosa present, Yes lip normal and Yes tongue normal Throat: uvula midline, postnasal drainage and no uvular edema Eyes: General: appearance normal, both eyes and all related structures Alignment and Position: align
[2024-03-29 13:38] VITALS: BP 119/78; PULSE 80; RESP 16; TEMP 36.5; O2SAT 97
== END 2024-03-29 14:15 | disposition home or self-care (01) ==
PROVIDERS: Emergency Provider Nurse Practitioner; PCP Internal Medicine
DX: J40 Bronchitis, not specified as acute or chronic (principal); J45.909 Unspecified asthma, uncomplicated; F17.200 Nicotine dependence, unspecified, uncomplicated
CPT/HCPCS: 71046; 99213; G0463